=== PATIENT | female | born 1970 | race Asian ===

== ENCOUNTER → 2018-01-29 | Outpatient (CLI) | payer BC | LOC: FIMAGING 15:42 | PROVIDERS: ATTEND Internal Medicine Endocrinology, Diabetes & Metabolism | DX: E04.2 Nontoxic multinodular goiter (principal) ==

== ENCOUNTER → 2018-02-26 | Outpatient (CLI) | payer BC | LOC: FIMAGING 10:30 | PROVIDERS: ATTEND Obstetrics & Gynecology | DX: Z12.31 Encounter for screening mammogram for malignant neoplasm of breast (principal) ==

== ENCOUNTER → 2018-09-14 | Outpatient (CLI) | payer BC | LOC: FIMAGING 08:38 | PROVIDERS: ATTEND Urology | DX: R31.9 Hematuria, unspecified (principal) ==